=== PATIENT | male | born 1995 | race Caucasian/White ===

== ENCOUNTER 2023-02-05 13:12 | Emergency (ER) | payer BC, SELFPAY ==
--- NOTE | 2023-02-05 13:26 | XR_ITS ---
FINAL REPORT CLINICAL HISTORY: Left foot pain weight fell on foot lateral swelling and bruising difficult to weight bear COMPARISON: None FINDINGS: LEFT FOOT: Three views of the left foot were obtained. There is no acute fracture or dislocation. The joint spaces are intact. There is soft tissue swelling of the forefoot. IMPRESSION: Soft tissue swelling without acute bony abnormality. Reviewed, Interpreted and Dictated by Damien Stewart III, MD Transcribed by Guera Ferrer Authenticated and [facility]
--- NOTE | 2023-02-05 13:26 | XR_ITS ---
FINAL REPORT CLINICAL HISTORY: Left ankle pain weight fell on foot lateral swelling and bruising difficult to weight bear COMPARISON: None FINDINGS: LEFT ANKLE: Three views of the left ankle were obtained. There is no acute fracture or dislocation. The joint spaces and mortise are intact. There is soft tissue swelling. IMPRESSION: Soft tissue swelling without acute bony abnormality. Reviewed, Interpreted and Dictated by Damien Stewart III, MD Transcribed by Guera Ferrer Authenticated and [facility]
[2023-02-05 13:30] VITALS: BP 124/52; PULSE 101; RESP 18; TEMP 36.6; O2SAT 97; BMI 29.5
--- NOTE | 2023-02-05 13:35 | EXP.UTC ---
Discharge Plan Disposition Patient Disposition: Home, Self-Care Condition: Good Prescriptions Prescriptions: New ibuprofen [IBU] 800 mg tablet 800 mg PO Q8HP PRN (Reason: Moderate Pain) Qty: 30 0RF No Action methylprednisolone [Medrol (Adebayo)] 4 mg tablets,dose pack 4 mg PO PER PKG DIR Qty: 21 0RF Referrals Follow up/Referrals: Provider,Referral, MD [Primary Care Provider] - See instructions Activity Restrictions/Add. Instructions Additional Instructions/Restrictions: Rest the extremity, apply ice for 15 minutes as tolerated three or four times per day, Elevate the extremity as tolerated while you are resting. Take ibuprofen for pain. I sent in a prescription to your pharmacy. Follow up with Dr. Chaudhry (podiatry). I put in a referral but you need to call her office and schedule an appointment. Follow up with your regular doctor. GO TO THE ER FOR ANY WORSENING SYMPTOMS Clinical Impressions Clinical Impression: Crush injury of left foot, Foot pain, left Stand Alone Forms Stand Alone Forms: Work/School Release Instructions Patient Instructions: How to Use Crutches, DI for Crush Injury Discharge ED Provider: Marbin Florez [facility] General Stated complaint: AO 02/03 left foot hurts when pressure applied Time Seen by Provider: 02/05/23 13:35 History of Present Illness Provider Complaint: He states that he dropped a dumb delgado on his left foot 2 days ago. Since then he has had left foot pain, swelling, and bruising. Related Data Previous Rx's Medication Instructions Recorded ibuprofen 800 mg tablet (IBU) 800 mg PO Q8HP PRN Moderate Pain 02/05/23 #30 tabs methylprednisolone 4 mg tablets in 4 mg PO PER PKG DIR #21 tabs 02/06/23 a dose pack (Medrol (Adebayo)) Allergies Allergy/AdvReac Type Severity Reaction Status Date / Time codeine Allergy Verified 02/06/23 10:07 [facility] Disclaimer: The information contained in this section may have been updated after the patient was seen, as this information can be updated by other users. Social History (Updated 02/06/23 @ 10:08 by Alka Willson) Smoking Status: Current every day smoker alcohol intake: never substance use type: denies use current occupational status: employed Travel in the last 8 weeks: None ROS Obtained: Yes All systems reviewed & no additional complaints except as documented Constitutional Constitutional: Denies chills and Denies fever(s) Eyes Eyes: Denies eye discharge ENT Ears, Nose, Mouth, and Throat: Denies dizziness, Denies otalgia and Denies sore throat Cardiovascular Cardiovascular: Denies chest pain Respiratory Respiratory: Denies shortness of breath, Denies chest congestion, Denies cough, Denies stridor and Denies wheezing Gastrointestinal Gastrointestingal: Denies nausea or vomiting Musculoskeletal Musculoskeletal: Reports as per HPI Integumentary/Breasts Skin/Breast: Denies rash Neurologic Neurologic: Denies dizziness and Denies paresthesias Allergic/Immunologic Allergic/Immunologic: Denies wheezing Physical Exam General General appearance: alert and in no apparent distress Head Head exam: atraumatic, normocephalic and normal inspection Eye Eye exam: Present normal appearance, PERRL and EOMI ENT ENT exam: Present normal exam, normal oropharynx, mucous membranes moist, TM's normal bilaterally and normal external ear exam Neck Neck exam: Present normal inspection, full ROM and trachea midline; Absent meningismus or lymphadenopathy Chest Chest inspection: Present normal inspection and symmetric chest wall rise; Absent tenderness Respiratory Respiratory exam: Present normal lung sounds bilaterally; Absent respiratory distress Cardiovascular Cardiovascular exam: Present regular rate and normal rhythm; Absent JVD Abdominal Exam Abdominal exam: Present soft and normal bowel sounds; Absent distention, tenderness or guarding Extremities Exam Extremities exam: Present normal capillary refill; A
[2023-02-05 14:29] VITALS: BP 124/52; PULSE 101; RESP 18; TEMP 36.6; O2SAT 97
== END 2023-02-05 14:29 | disposition home or self-care (01) ==
PROVIDERS: Emergency Provider Nurse Practitioner Family
DX: M79.672 Pain in left foot (principal); S97.82XA Crushing injury of left foot, initial encounter; F17.210 Nicotine dependence, cigarettes, uncomplicated; W20.8XXA Other cause of strike by thrown, projected or falling object, initial encounter
CPT/HCPCS: 73610; 73630; 99204; 99212; G0463

== ENCOUNTER → 2023-02-28 10:17 | Outpatient (CLI) | payer BC, SELFPAY ==
--- NOTE | 2023-02-28 10:17 | MR_ITS ---
FINAL REPORT CLINICAL HISTORY: crush injury of left foot. DROPPED WEIGHT ON FOOT. NUMBNESS AND PAIN ON LATERAL SIDE OF FOOT. COMPARISON: None FINDINGS: Multiplanar MR imaging of the left foot was performed without contrast. There is bone bruising/marrow edema in the lateral cuboid, with a probable small nondisplaced fracture. There is mild tenosynovitis in the posterior tibial tendon, the flexor digitorum longus tendon, and the peroneal longus and brevis tendons. No ligamentous injury is identified. The musculature is intact. The plantar aponeurosis is intact. There is lateral soft tissue swelling overlying the foot. IMPRESSION: Bone bruising/marrow edema in the lateral cuboid, with a probable small nondisplaced fracture. Mild tenosynovitis of the posterior tibial tendon, the flexor digitorum longus tendon, and the peroneal longus and brevis tendons. Reviewed, Interpreted and Dictated by Damien Stewart III, MD Transcribed by Keyla Troy Authenticated and [facility]
== END ==
LOC: RAD 10:17
PROVIDERS: PCP Podiatrist; Visit Provider Podiatrist
DX: M79.672 Pain in left foot (principal); S97.82XA Crushing injury of left foot, initial encounter
CPT/HCPCS: 73718

== ENCOUNTER 2023-05-29 19:38 | Outpatient (CLI) | payer BC, SELFPAY ==
[2023-05-29 18:26] LABS: Coronavirus 19, PCR Not Detected (NotDetected); Influenza A, PCR Not Detected (NotDetected); Influenza B, PCR Not Detected (NotDetected)
== END 2023-05-29 23:59 ==
LOC: LAB.DROPOF 19:39
PROVIDERS: PCP Student in an Organized Health Care Education/Training Program; Visit Provider Student in an Organized Health Care Education/Training Program
DX: R09.89 Other specified symptoms and signs involving the circulatory and respiratory systems (principal); R07.9 Chest pain, unspecified; R05.9 Cough, unspecified; J34.89 Other specified disorders of nose and nasal sinuses
CPT/HCPCS: 87636

== ENCOUNTER 2023-08-10 16:03 | Emergency (ER) | payer BC, SELFPAY ==
[2023-08-10 17:15] VITALS: BP 150/90; PULSE 114; RESP 20; TEMP 36.8; O2SAT 99; BMI 30.8
[2023-08-10 17:43] LABS: UTC Influenza A Antigen Negative (Negative); UTC Influenza B Antigen Negative (Negative); UTC Strep Screen (Rapid) Negative (Negative)
--- NOTE | 2023-08-10 17:51 | ED_ITS ---
Discharge Plan Disposition Patient Disposition: Home, Self-Care Condition: Good Prescriptions Prescriptions: New prednisone 20 mg tablet 20 mg PO BID 5 Days Qty: 10 0RF amoxicillin-pot clavulanate 875-125 mg Tablet 1 tab PO Q12H Qty: 20 0RF Referrals Follow up/Referrals: Ira Beverly PA [Primary Care Provider] - See instructions Activity Restrictions/Add. Instructions Additional Instructions/Restrictions: *Monitor Temp, Over the counter Motrin or Tylenol as directed/as needed Tylenol every 4 hours and Motrin every 6 hours (as long as your family doctor has told you that you can take it) for fever or pain. and straight to ER if unable to lower temp less than 101.0 after medication given *Warm salt water gargles may help to soothe the throat *Throat Lozenges? *Warm fluids like tea with honey may help to soothe the throat? *Sleep elevated *Humidifier/Vaporizer Your throat swab was sent for culture. Those results are typically sent to your primary care. Be sure to follow up in 2-3 days with your family doctor/primary care physician if no improvement so they can review those result and treat if necessary. If you don?t have a primary care doctor, I recommend you get one but in the mean time, you will have to return to a walk in clinic Follow up IMMEDIATELY for new or worsening symptoms or no Noticeable improvement over the next 48-72 hours. 911 for difficulty breathing or swallowing Clinical Impressions Clinical Impression: Sinusitis Stand Alone Forms Stand Alone Forms: Work/School Release Instructions Patient Instructions: DI for Sinusitis Discharge ED Provider: Ashley Sterling [facility] HPI General Stated complaint: body aches, h/a Mode of Arrival: Ambulatory Source of Information: Patient Limitations: No Limitations Time Seen by Provider: 08/10/23 17:51 Description of Symptoms (Recalled from Triage Doc. by RN): PATIENT C/O BODY ACHES, HEADACHE AND FEVER SINCE SUNDAY NIGHT HEENT Symptoms (Recalled from RN notes): Yes Resp Symptoms (Recalled from RN notes): No Skin Symptoms (Recalled from RN notes): No MS Symptoms (Recalled from RN notes): No Functional Status (Recalled from RN notes): WNL History of Present Illness Provider Complaint: Patient states that he started feeling bad on Wed States that he has been having sinus pain and pressure, headache, body aches and fever states he has continued to not feel well States he wasnt sure if he may have a sinus infection or COVID and wanted to get tested for COVID Related Data Previous Rx's Medication Instructions Recorded amoxicillin 875 mg-potassium 1 tab PO Q12H #20 tabs 08/10/23 clavulanate 125 mg tablet prednisone 20 mg tablet 20 mg PO BID 5 days #10 tabs 08/10/23 Allergies Allergy/AdvReac Type Severity Reaction Status Date / Time codeine Allergy Verified 06/27/23 09:17 Worker's Comp Is this a Worker's Comp case?: No [facility] Disclaimer: The information contained in this section may have been updated after the patient was seen, as this information can be updated by other users. Medical History (Updated 08/10/23 @ 20:10 by Ashley Sterling APRN) Depression Anxiety Non-compliance Tenosynovitis of left ankle Open wound of left foot Crush injury of left foot Cuboid fracture Crush injury of left foot Surgical History No significant past surgical history Family History Other No significant family history Social History Smoking Status: Current every day smoker tobacco type: e-cigarettes and smokeless tobacco alcohol intake: current alcohol intake frequency: a few times a month substance use type: denies use current occupational status: employed Travel in the last 8 weeks: None ROS Obtained: Yes All systems reviewed & no additional complaints except as do cumented and Yes Systems reviewed as appropriate & no additional complaints except as documented Constitutional Constitutional: Reports system reviewed and no additional complaints, except as documented, Reports as per HPI, Reports body ache, Reports fever(s) and Reports headache(s) ENT Ears, Nose, Mouth, and Throat: Reports system reviewed and no additional complaints, except as documented, Reports as per HPI, Reports headache(s), Reports sinus pain and Reports sinus pressure Cardiovascular Cardiovascular: Reports system reviewed and no additional complaints, except as documented and Reports as per HPI Respiratory Respiratory: Reports system reviewed and no additional complaints, except as documented and Reports as per HPI Gastrointestinal Gastrointestingal: Reports system reviewed and no additional complaints, except as documented and as per HPI Neurologic Neurologic: Reports headache(s) Physical Exam General General appearance: alert and in no apparent distress ENT ENT exam: Present mucous membranes moist Expanded ENT Exam Nose exam: Present sinus tenderness Throat exam: Present other (PND) Respiratory Respiratory exam: Present normal lung sounds bilaterally; Absent respiratory distress or wheezes Cardiovascular Cardiovascular exam: Present regular rate, normal rhythm and tachycardia Neurological Exam Neurological exam: Present alert, oriented X3 and normal gait Medical Decision Making Yrn Inquiry Pt receiving controlled substance: No Yrn was queried for this patient: No Vital Signs: 08/10/23 17:15 Temperature 98.3 F Temperature Source Oral Pulse Rate [Left Brachial] 114 H Respiratory Rate 20 Blood Pressure [Left Arm] 150/90 H Blood Pressure Mean [Left Arm] 110 Blood Pressure Source [Left Arm] Automatic Cuff Blood Pressure Position [Left Arm] Sitting 02 Sat by Pulse Oximetry 99 Oxygen Delivery Method Room Air Lab Data Lab results reviewed: Yes I reviewed the patient's lab results. Lab Results 08/10/23 17:26: Influenza Type A Ag Negative, Influenza Type B Ag Negative, Strep Scn Rapid Clinic Negative Orders (Tests/Meds): ORDERS Category Date Time Status Strep Screen Confirmation Stat Micro 08/10/23 17:26 Received
[2023-08-10 18:03] VITALS: BP 150/90; PULSE 114; RESP 20; TEMP 36.8; O2SAT 99
[2023-08-10 19:29] LABS: Coronavirus 19, PCR Not Detected (NotDetected); Influenza A, PCR Not Detected (NotDetected); Influenza B, PCR Not Detected (NotDetected)
== END 2023-08-10 18:05 | disposition home or self-care (01) ==
PROVIDERS: Emergency Provider Nurse Practitioner; PCP Physician Assistant
DX: J01.90 Acute sinusitis, unspecified (principal); R51.9 Headache, unspecified; R50.9 Fever, unspecified
CPT/HCPCS: 87636; 87804; 87880; 99212; 99214; G0463